=== PATIENT | female | born 1970 | race Hispanic/Latino ===

== ENCOUNTER 2019-03-05 17:28 | Emergency (ER) | payer SELFPAY ==
[~2019-03-05] VITALS: Ht 157.5 cm; Wt 63.6 kg
[2019-03-05] MEDS ORDERED: KEFLEX500 M1 PO (18:26)
[2019-03-05] MEDS ORDERED: DELTASONE20 MG PO (18:26)
[2019-03-05 18:32] VITALS: BP 144/83
== END 2019-03-05 18:45 | disposition home or self-care (01) | DRG 607 ==
LOC: ED 17:28
DX: L50.0 Allergic urticaria (principal); T37.0X5A Adverse effect of sulfonamides, initial encounter